=== PATIENT | male | born 1955 | race African-American/Black ===

== ENCOUNTER 2019-03-28 15:55 | Emergency (ER) | payer MEDICARE ==
[2019-03-28] MEDS ORDERED: NA CHLORIDE 0.9% 500 ML ONE (17:31)
--- NOTE | 2019-03-28 17:37 | RAD REPORT ---
EXAM DESCRIPTION: RAD - Chest Single View - 03/28/2019 5:32 pm CLINICAL HISTORY: dehydration Chest pain. COMPARISON: <Comparisons> FINDINGS: Portable technique limits examination quality. The lungs are grossly clear. The heart is normal in size. No displaced fractures.Metallic foreign bod ies project over the left shoulder. IMPRESSION: No acute intrathoracic process suspected.
--- NOTE | 2019-03-28 17:38 | RAD REPORT ---
EXAM DESCRIPTION: CT - Abdomen Pelvis Wo Contrast - 03/28/2019 5:31 pm CLINICAL HISTORY: Abdominal pain. ABD PAIN COMPARISON: <Comparisons> TECHNIQUE: CT imaging of the abdomen and pelvis was performed without contrast. Solid organ, bowel a nd vascular assessment is limited due to lack of IV and oral contrast. All CT scans are performed using dose optimization technique as appropriate and may include automated exposure control or mA/KV adjustment according to patient size. FINDINGS: The lower lung wilcox are clear. The liver, spleen, pancreas, adrenal glands and kidneys are within normal limits for a limited non-co ntrast examination. No bowel obstruction, free air, free fluid or abscess. Moderate fat containing right inguinal hernia. The appendix is not identified as a discrete structure, however, no secondary findings of appendicit is are identified. Moderate fecal retention in the colon. The osseous structures are within normal limits.Metallic foreign body in the region of the right calderon c wing. IMPRESSION: No acute intra-abdominal or pelvic findings. A limited non-contrast examination was performed as detailed.
[2019-03-28] MEDS ORDERED: ACETAMINOPHEN 500 MG TAB ONE (18:02)
[2019-03-28 18:23] LABS: Absolute Lymphocytes (CBC) 0.6 K/uL (0.7-4.9); Basophils % 0.5 % (0-1.3); Hematocrit 41.2 % (39.6-49.0); Lymphocytes % 5.4 % (15.3-44.8); MPV 10.1 fL (7.6-11.3); RBC Red Blood Cell Count 4.68 M/uL (4.33-5.43)
[2019-03-28 18:28] LABS: Protime INR 1.34
[2019-03-28] MEDS ORDERED: NA CHLORIDE 0.9% 1,000 ML ONE (18:32)
[2019-03-28 18:46] LABS: ALT/SGPT 25 U/L (12-78); Albumin 3.3 g/dL (3.4-5.0); Alkaline Phosphatase 102 U/L (45-117); BUN Blood Urea Nitrogen 14 mg/dL (7-18); Bicarbonate 22 mmol/L (21-32); Bilirubin Total 1.2 mg/dL (0.2-1.0); Glucose Level 146 mg/dL (74-106); NT PRO-BNP 53 pg/mL (<125); Protein, Total 8.9 g/dL (6.4-8.2); Sodium Level 134 mmol/L (136-145); Troponin (Emerg Dept Use Only) < 0.02 ng/mL (0.0-0.045)
[2019-03-28 18:47] LABS: AST/SGOT 48 U/L (15-37); Bilirubin Direct 0.1 mg/dL (0-0.2); CKMB Creatine Kinase MB < 1.0 ng/mL (0.3-3.6); Creatine Phosphokinase 313 U/L (39-308); Lipase 134 U/L (73-393); Potassium 4.5 mmol/L (3.5-5.1)
[2019-03-28 19:05] LABS: Platelet Estimate ADEQ; Urine White Blood Cell Casts OK
[2019-03-28 19:06] LABS: Blood Morphology Comment NOT SEEN (NOT SEEN)
[2019-03-28 20:17] LABS: Urine Blood 2+ (NEG); Urine Glucose NEGATIVE (NEG); Urine Protein 2+ (NEG)
[2019-03-28 20:36] LABS: Urine Bacteria LOADED /HPF (NONE SEEN); Urine Culture Reflex Order REFLEXED
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
[2019-03-29 06:07] VITALS: TEMP 97.6
[2019-03-29 06:12] VITALS: O2SAT 97
[2019-03-29 06:17] VITALS: BP 121/76
--- NOTE | 2019-03-29 08:03 | EKG ---
Test Date: 2019-03-28 Test Time: 17:56:45 Frit Coater: RV MEASUREMENT RESULTS: Intervals: Rate: 108 SD: 172 QRSD: 90 QT: 340 QTc: 455 [place]: P: 52 SD: 172 QRS: -24 T: 44 INTERPRETIVE STATEMENTS: Sinus tachycardia Moderate voltage criteria for LVH, may be normal variant Borderline ECG No previous ECG available for comparison Electronically Signed On 03-29-19 08:02:45 CDT by Ludwin August
== END 2019-03-28 22:28 | disposition home or self-care (01) ==
LOC: ER 15:55
DX: N39.0 Urinary tract infection, site not specified (principal); E86.9 Volume depletion, unspecified; I10 Essential (primary) hypertension; E11.9 Type 2 diabetes mellitus without complications; Z91.048 Other nonmedicinal substance allergy status; Z95.818 Presence of other cardiac implants and grafts
CPT/HCPCS: 96361; 93005; 87040; 87088; 85025; 87086; 80048; 36415; 83735; 82550; 85610; 82962; 80076; 83605; 85730; 87077; 87186; 84484; 82553; 83690; 84145; 83880; 87804 ×2; 74176; 71045; 51702; 96360; 99284; J7030; 81003; 81015